=== PATIENT | female | born 1965 | race Caucasian/White ===

== ENCOUNTER 2020-10-05 20:04 | Emergency (ER) | payer OTHER, SELFPAY ==
--- NOTE | ~2020-10-05 | XR_ITS ---
EXAMINATION: XR WRIST, LEFT CLINICAL INFORMATION: Laceration COMPARISON: None TECHNIQUE: PA, lateral, and oblique views of the left wrist. FINDINGS: There is some disruption of the skin at the wrist adjacent to the ulna. No radiopaque foreign body is seen. No fracture detected. Marked degenerative changes present at the first metacarpal carpal joint. Some calcification in the triangular fibrocartilage is seen. XR/XR wrist LT 2V IMPRESSION: No evidence of acute traumatic osseous injury or retained foreign body. Chondrocalcinosis and degenerative changes first metacarpal carpal joint.
[2020-10-05 20:13] VITALS: BP 139/88; PULSE 120; RESP 18; TEMP 36.6; O2SAT 97; BMI 21.5
--- NOTE | 2020-10-05 21:21 | ED.WOUNDLAC ---
HPI - Wound/Laceration General Chief Complaint: Wound/Laceration Stated Complaint: wrist lac Time Seen by Provider: 10/05/20 22:04 Source: patient Mode of arrival: ambulatory Limitations: no limitations History of Present Illness HPI narrative: 54-year-old female presents with laceration to the medial aspect of the left wrist after a glass broke while she was washing dishes. She did not report any decreased range of motion, states that she did try to apply pressure dressing but the bleeding would not stop. Last Tdap vaccine was about 2 months ago. Patient does not report any other symptoms at this time. Onset (ago): hour(s) (Within the hour of arrival) Extremity Location: left: wrist Place: home Patient tetanus UTD: Yes Context: accidental Associated symptoms: pain and other (Bleeding) Treatments prior to arrival: bandage Related Data Allergies Allergy/AdvReac Type Severity Reaction Status Date / Time From [facility] Allergy Unknown THROAT Uncoded 11/29/19 15:17 CLOSES Review of Systems Review of Systems: Constitutional: No Fever, No Chills ENT/Mouth: No Ear Pain, No Hoarseness, No sore throat Eyes: No Eye Pain, No Swelling, No Redness, No Foreign Body Cardiovascular: No Chest Pain, No SOB Respiratory: No Cough, No Dyspnea Gastrointestinal: No Nausea, No Vomiting, No Diarrhea, No abdominal Pain Genitourinary: No Dysuria, No Hematuria Musculoskeletal: positive left wrist pain, No Myalgias, No Joint Swelling Skin: Positive left wrist laceration, No rash Neuro: No Weakness, No Numbness, No Paresthesias, No Loss of Consciousness, No Dizziness, No Headache Psych: No Anxiety/Panic, No Depression Heme/Lymph: no easy bruising, no Lymphadenopathy Endocrine: No Polyuria, No Polydipsia Yes all other systems are reviewed and are negative [facility] Past Medical History Attestation statement: The following information was validated with the patient. Source: old records reviewed Medical History (Updated 10/06/20 @ 00:00 by Emmanuel Ventura) No known health problems Social History Social History Advance Directives: No Advance Directives Information Provided: Yes Physical Exam Vital Signs: Vital Signs: Last Vital Signs Temp 98 F 10/05/20 20:13 Pulse 96 10/05/20 22:16 Resp 16 10/05/20 22:16 BP 129/79 10/05/20 22:16 Pulse Ox 99 07/25/21 22:16 Body Mass Index 21.5 Appearance: Alert. Oriented X3. No acute distress. Eyes: Pupils equal, round and reactive to light. ENT: Pharynx normal. Neck: Normal inspection. Neck supple. CVS: Normal heart rate and rhythm. Pulses normal. Respiratory: No respiratory distress. Breath sounds normal. Abdomen: Soft and nontender. Skin: Positive 2 cm laceration to the medial aspect of the left wrist, otherwise Skin warm and dry. Normal skin color. Normal skin turgor. Extremities: No lower extremity edema. Neuro: No motor deficit. No sensory deficit. Course Course Course Narrative: 54-year-old female presents with left wrist laceration after coming into contact with a broken glass while washing dishes. Patient has full range of motion, brisk capillary refill to all extremities. X-rays are negative for foreign body. Prepped and draped in sterile fashion. Irrigated with copious amounts of normal saline and cleansed with Betadine. Patient tolerated procedure well. Please refer to procedure note for full details. Approximately 30 minutes after laceration repair, patient continues to have brisk capillary refill, equal pulses, and full range of motion. Neurovascularly intact. Plan of care is to discharge home. Patient does verbalize understanding of and agrees to plan of care along with suture care and when to return to have sutures removed. Procedures Laceration Laceration 1: Site: upper extremity Side (If applicable): left Size (cm): 2 Description: linear Depth: simple, single layer Local Anesthetic: lidocaine 2% Amount of anesthesia used (mL): 4 Pre-repair: wound explored, irrigated extensively and deep structures intact Skin layer closed with: nylon Size (cm): 5-0 Number of sutures: 4 Technique: simple, interrupted MDM - Wound/Laceration Differential Diagnosis Differential diagnosis: Likely laceration Imaging Data Wrist x-ray: Attestation: I personally reviewed and interpreted this imaging study as follows: Radiologist's impression: EXAMINATION: XR WRIST, LEFT CLINICAL INFORMATION: Laceration COMPARISON: None TECHNIQUE: PA, lateral, and oblique views of the left wrist. FINDINGS: There is some disruption of the skin at the wrist adjacent to the ulna. No radiopaque foreign body is seen. No fracture detected. Marked degenerative changes present at the first metacarpal carpal joint. Some calcification in the triangular fibrocartilage is seen. XR/XR wrist LT 2V IMPRESSION: No evidence of acute traumatic osseous injury or retained foreign body. Chondrocalcinosis and degenerative changes first metacarpal carpal joint. Discharge Plan Discharge Clinical Impression: Laceration Patient Disposition: Home, Self-Care Instructions: Laceration (ED) Additional Instructions: You were evaluated for laceration to the left wrist. X-rays are negative for acute findings or foreign body. Please return in 10 days to have sutures removed. Thank you for choosing this emergency department for evaluation. Please follow-up with primary care physician as needed. Return to the emergency department for any new, concerning, or worsening symptoms. Interventions: ED Discharge Assessment Last Done: 10/05/20 23:17 Discharge Date/Time: 10/05/20 23:19
[2020-10-05 22:16] VITALS: BP 129/79; PULSE 96; RESP 16; O2SAT 99
[2020-10-05] MEDS: Lidocaine HCl 2 % MPF 5 ML VIAL SUBCUT (22:16)
== END 2020-10-05 23:19 | disposition home or self-care (01) ==
PROVIDERS: Emergency Provider Emergency Medicine; PCP Family Medicine Adult Medicine
DX: S61.512A Laceration without foreign body of left wrist, initial encounter (principal); W25.XXXA Contact with sharp glass, initial encounter; Y93.G1 Activity, food preparation and clean up; Y92.010 Kitchen of single-family (private) house as the place of occurrence of the external cause; Y99.9 Unspecified external cause status
CPT/HCPCS: 12001; 73100; 99284

== ENCOUNTER 2020-11-01 19:52 | Emergency (ER) | payer OTHER, SELFPAY ==
--- NOTE | 2020-11-01 | ECG_ITS ---
Test Reason : CHESTPAIN Blood Pressure : / mmHG Vent. Rate : 089 BPM Atrial Rate : 089 BPM P-R Int : 140 ms QRS Dur : 086 ms QT Int : 368 ms P-R-T Axes : 056 058 020 degrees QTc Int : 447 ms Normal sinus rhythm Possible Left atrial enlargement Nonspecific T wave abnormality Abnormal ECG When compared with ECG of 23-MAY-2012 21:53, T wave inversion now evident in Inferior leads Nonspecific T wave abnormality now evident in Lateral leads Referred By: Generic ED Physician Electronically Signed By:ADRIANA PAZ
[2020-11-01 19:54] VITALS: BP 106/70; PULSE 77; RESP 16; TEMP 36.2; O2SAT 98; BMI 21.5
== END 2020-11-01 22:07 | disposition left against medical advice (07) ==
PROVIDERS: Emergency Provider Emergency Medicine; PCP Family Medicine Adult Medicine
DX: R07.9 Chest pain, unspecified (principal)
CPT/HCPCS: 93005; 99282; 99283